=== PATIENT | male | born 1970 | race Caucasian/White ===

== ENCOUNTER 2017-01-04 15:14 | Emergency (ER) ==
[2017-01-04 15:21] VITALS: BP 153/94
--- NOTE | 2017-01-04 16:22 | PROVIDER DOCUMENTATION ---
HPI-Rash/Wound/ReCheck <Sari TrianaPascual - Last Filed: 01/04/17 16:40> - General Source: patient - History of Present Illness-Dermatology Location: reports: scalp Quality: reports: painful Severity: reports: mild Timing: reports: still present, constant Context/Associated Symptoms: reports: blisters, nasal congestion, tender area. denies: hives, malaise, pallor, rash, sore throat Locality of Occurance: Home Similar Symptoms Previously?: No Recently seen or treated by another doctor?: No <Juan J Uribe - Last Filed: 01/04/17 16:52> - General Chief Complaint: Abscess Stated Complaint: HEADACHE/KNOTS ON HEAD/ HAD FLU Time Seen by Provider: 01/04/17 16:21 Allergies/Adverse Reactions: Allergies Allergy/AdvReac Type Severity Reaction Status Date / Time No Known Allergies Allergy Verified 01/25/16 15:15 Home Medications: Home Medication List Medication Instructions Recorded Confirmed Last Taken Type Sulfamethoxazole/Trimethoprim 1 each PO BID #14 tablet 01/04/17 Unknown Rx [Bactrim Ds Tablet] - History of Present Illness-Dermatology Nature of Presenting Problem: patient is a 46 y/o M that presents to the ER with sores to scalp for a few days. reports other half has been opening the sores up for him. Patient has subjective 104 fever. He also has sinus congestion (Juan J Uribe) Review of Systems - Adult - REVIEW OF SYSTEMS - ADULT Constitutional: reports: fever. denies: chills Eyes: reports: no symptoms reported Ears, Nose, Mouth & Throat: reports: sinus problem. denies: ear pain, throat pain, throat swelling Cardiovascular: denies: chest pain, palpitations, syncope Respiratory: denies: cough, shortness of breath, wheezing Gastrointestinal: denies: abdominal pain, hematemesis, diarrhea, nausea, rectal bleeding, vomiting Genitourinary: reports: no symptoms reported Musculoskeletal: reports: no symptoms reported Integumentary: reports: skin sores/ulcer. denies: mole changes, nail changes Neurological: reports: no symptoms reported Psychiatric: reports: no symptoms reported Endocrine: reports: no symptoms reported Hematologic/Lymphatic: reports: no symptoms reported Allergic/Immunologic: reports: no symptoms reported All Other Systems: Reviewed and Negative <Juan J Uribe - Last Filed: 01/04/17 16:52> Past History - Adult - PAST MEDICAL HISTORY-ADULT Major Childhood Illnesses: reports: denies history Cardiovascular: reports: denies history Respiratory: reports: denies history Gastrointestinal: reports: denies history Genitourinary: reports: denies history Musculoskeletal: reports: denies history Neurological: reports: denies history Endocrine/Immune: reports: denies history Other Conditions: reports: denies history - FAMILY HISTORY Family History: reviewed, not pertinent <Sari Triana - Last Filed: 01/04/17 16:40> - PAST MEDICAL HISTORY-ADULT Review of Records: reports: Old Records Reviewed, Nursing Assessment Review, Medications Reviewed - IMMUNIZATION STATUS Childhood Immunizations: See Nurse Assessment Flu Vaccine: See Nurse Assessment - FAMILY HISTORY Family History: reviewed, not pertinent - SOCIAL HISTORY Smoking: cigarettes, less than 1 pack/day Alcohol Use Frequency: occasionally Living Situation: family <Juan J Uribe - Last Filed: 01/04/17 16:52> Physical Exam-General - PHYSICAL EXAM-ADULT Initial Vital Signs Reviewed: Yes - CONSTITUTIONAL General Appearance: appears well, alert, no apparent distress - EYES Eyes: PERRL/EOMI, pink conjunctivae - HEAD, EARS, NOSE, MOUTH & THROAT HENMT: normocephalic/atraumatic, moist mucous membranes, frontal tenderness, maxillary tenderness, other (poor dentition) - NECK Neck: non-tender, full range of motion, supple, lymphadenopathy - RESPIRATORY Respiratory: chest non-tender, lungs clear, normal breath sounds - CARDIOVASCULAR Cardiovascular: regular rate, rhythm, no edema - MUSCULOSKELETAL Back Exam: normal inspection, no CVA tenderness, no vertebral tenderness Extremity: normal gait, normal inspection - SKIN Integumentary: other (2 areas of pain and swellingto superior scalp that are not fluctulant nor erythematous) - NEUROLOGIC Neurologic: grossly normal, no motor/sensory deficits - PSYCHIATRIC Psych/Mental Status: normal thought content, normal thought process <Sari Triana - Last Filed: 01/04/17 16:40> Progress <Sari Triana - Last Filed: 01/04/17 16:40> <Juan J Uribe - Last Filed: 01/04/17 16:52> - PLAN OF CARE/RESULTS Progress/Plan/Lab Results: Vital Signs Temp Pulse Resp BP Pulse Ox 01/04/17 15:18 97.8 F 77 20 153/94 100 No Known Allergies Allergy (Verified 01/25/16 15:15) Sulfamethoxazole/Trimethoprim [Bactrim Ds Tablet] 1 each PO BID #14 tablet 01/04 (Juan J Uribe) Departure - Departure Time of Disposition Order: 16:40 Certified Medical Emergency: Emergent <Sari Triana - Last Filed: 01/04/17 16:40> <Juan J Uribe - Last Filed: 01/04/17 16:52> - Departure DIAGNOSIS: Abscess Sinusitis Qualifiers: Sinusitis location: maxillary Chronicity: acute Recurrence: non-recurrent Qualified Code(s): J01.00 - Acute maxillary sinusitis, unspecified Disposition: HOME 01 Condition: Good Additional Instructions: Apply hot compresses to area of pain to scalp ED Follow Up Instructions: You have been treated by a care provider in the Emergency Department. These instructions are being provided to you so you can have an understanding of how to care for yourself upon discharge. Upon discharge from the Emergency Department, you are responsible for making arrangements for follow-up care by a physician of your choice. Take all prescribed medications as directed. Return to the Emergency Department immediately for any new or worsening symptoms. You may call the Physician Referral phone number at [phone] to obtain a list of Physicians who are taking new patients. Prescriptions: Sulfamethoxazole/Trimethoprim [Bactrim Ds Tablet] 1 each PO BID #14 tablet Referrals: Rosetta Singh MD [Primary Care Provider] - Forms: Return to School/Parent Work Instructions: Abscess, [id number], Sinusitis, [id number], Sulfamethoxazole ; Trimethoprim, [id number] tablets Attestation - Physician/ ARY Attestation Patient care was provided by Advanced Practice Provider:: Yes Advanced Practice Provider:: Sari Triana Advanced Practice Provider documentation review:: The Mid-level provider documentation, treatment plan and medical decision making was reviewed by the physician who agrees with all treatment and medical decision making by the MLP. <Sari Triana - Last Filed: 01/04/17 16:40> - Scribe Verification/Attestation Scribe:: Juan J Uribe Acting as Scribe for:: Sari Triana Scribe documention review:: This chart was documented by a scribe and accurately reflects the service the provider performed and the decisions made by the provider. - Physician/ ARY Attestation Patient care was provided by Advanced Practice Provider:: Yes Advanced Practice Provider:: Sari Triana Advanced Practice Provider documentation review:: The Mid-level provider documentation, treatment plan and medical decision making was reviewed by the physician who agrees with all treatment and medical decision making by the MLP. <Juan J Uribe - Last Filed: 01/04/17 16:52> Physician Attestation - Physician Attestation I, the provider, attest to the following statement:: Sari Triana Physician documentation Attestation:: This documentation recorded by the scribe accurately reflects the service I personally performed and the decisions made by me. <Sari Triana - Last Filed: 01/04/17 16:40> - Physician Attestation I, the provider, attest to the following statement:: Sari Triana Physician documentation Attestation:: This documentation recorded by the scribe accurately reflects the service I personally performed and the decisions made by me. <Juan J Uribe - Last Filed: 01/04/17 16:52>
== END 2017-01-04 16:54 | disposition home or self-care (01) ==
LOC: P.ED 15:14
DX: L02.811 Cutaneous abscess of head [any part, except face] (principal); J01.00 Acute maxillary sinusitis, unspecified; L98.9 Disorder of the skin and subcutaneous tissue, unspecified; R50.9 Fever, unspecified; F17.210 Nicotine dependence, cigarettes, uncomplicated; R59.0 Localized enlarged lymph nodes
CPT/HCPCS: 99282